=== PATIENT | female | born 1960 | race Caucasian/White ===

== ENCOUNTER 2021-02-12 22:43 | Emergency (ER) | payer MEDICARE, OTHER ==
[~2021-02-12] VITALS: Ht 167.6 cm; Wt 65.8 kg
--- NOTE | 2021-02-12 23:20 | NUR ---
FLORENCIA GIRARD AT PT'S BEDSIDE
--- NOTE | 2021-02-12 23:23 | NUR ---
pt bibra c/o anxiety and sob. pt aaox4 breathing evenly and unlabored. 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 Md at bedside for eval. Pt attached to monitor and pox. Pt given blanket and call light within reach
[2021-02-13 00:39] LABS: CALCIUM, SERUM 9.5 mg/dL (8.5-10.1); CARBON DIOXIDE 33 mmol/L (21-32); CHLORIDE 83 mmol/L (98-107); CREATININE 0.9 mg/dL (0.6-1.3); GLUCOSE 140 mg/dL (74-106); SODIUM SERUM 128 mmol/L (136-145); UREA NITROGEN, BLOOD 14 mg/dL (7-18)
[2021-02-13 00:51] LABS: ALANINE AMINOTRANSFERASE 23 U/L (12-78); ALBUMIN 3.7 g/dL (3.4-5.0); ALKALINE PHOSPHATASE 137 U/L (46-116); ASPARTATE AMINOTRANSFERASE 32 U/L (15-37); BILIRUBIN,DIRECT 0.2 mg/dL (0.0-0.2); TOTAL PROTEIN, SERUM 7.9 g/dL (6.4-8.2)
[2021-02-13 00:56] LABS: POTASSIUM 2.1 mmol/L (3.5-5.1)
[2021-02-13] MEDS ORDERED: POTASSIUM CHLORIDE 20 MEQ TAB.PRT.SR PO ONE ×3 (01:00→01:05)
[2021-02-13] MEDS ORDERED: POTASSIUM CHLORIDE 10 MEQ/50 ML PREMIXED IVPB FOR PERIPHERAL LINE IV ONE (01:00)
--- NOTE | 2021-02-13 01:00 | NUR ---
CRITICAL K 2.1
[2021-02-13] MEDS ORDERED: POTASSIUM CL. PREMIX PERIPHER. 50 ML ONE (01:05)
--- NOTE | 2021-02-13 01:14 | NUR ---
1/4 bags of potassium chloride hung
[2021-02-13 01:30] LABS: BASOPHILS % (AUTO) 0.4 % (0.0-2.0); EOSINOPHILS % (AUTO) 0.2 % (0.0-6.0); HEMATOCRIT 48 % (33-45); LYMPHOCYTES # (AUTO) 0.9 K/uL (0.8-4.8); LYMPHOCYTES % (AUTO) 7.2 % (20.0-44.0); MEAN CORPUSCULAR HGB CONC 33 g/dl (31.0-36.0); MEAN CORPUSCULAR VOLUME 94 fL (82-100); MONOCYTES # (AUTO) 1.1 K/uL (0.1-1.30); MONOCYTES % (AUTO) 8.8 % (2.0-12.0); NEUTROPHILS # (AUTO) 10.7 K/uL (1.8-8.9); NEUTROPHILS % (AUTO) 83.4 % (43.0-81.0); PLATELET COUNT (AUTO) 388 K/uL (150-450); RED BLOOD CELL COUNT(AUTO) 5.14 MIL/uL (4.0-5.2); WHITE BLOOD COUNT (AUTO) 12.8 K/uL (4.3-11.0)
--- NOTE | 2021-02-13 01:56 | NUR ---
Patient does not wish to proceed with medical care recommended by Dr. Lugo. Patient given information related to possible complications, up to and including , which could occur as a result of leaving the hospital at this time. Patient verbalizes understanding of risks involved due to leaving against medical advice. Patient has signed AMA form.
--- NOTE | 2021-02-13 03:40 | NUR ---
PT PICKED UP BY FAMILY
[2021-02-13 03:45] VITALS: BP 119/78
== END 2021-02-13 03:40 | disposition left against medical advice (07) ==
LOC: ER 22:45
DX: E87.6 Hypokalemia (principal); Z98.890 Other specified postprocedural states; Z60.2 Problems related to living alone
CPT/HCPCS: 36415; 71045; 80048; 80076; 83880; 84484; 85025; 85378; 85730; 87081; 93005; 96365; 99285; J3480; J7040